=== PATIENT | female | born 1955 | race Caucasian/White ===

== ENCOUNTER 2019-06-05 10:33 | Emergency (ER) | payer BC, MEDICARE, SELFPAY ==
--- NOTE | 2019-06-05 11:03 | ED.GENADULT ---
HPI - General Adult General Chief complaint: Wound/Laceration Stated complaint: laceration on hand Time Seen by Provider: 06/05/19 11:07 Source: patient and RN notes reviewed Mode of arrival: ambulatory Limitations: no limitations History of Present Illness HPI narrative: 64-year-old female present with complaints of laceration to to palm of right hand with intermittent minimal bleeding, caused by ago a broken rita flower pot approximately 15 hours ago. Denies focal weakness, altered sensation, rash, fever or chills, or nausea or vomiting and abdominal pain. Denies pain, numbness or tingling, or loss of mobility. No foreign body sensation. Tetanus up-to-date, last 3 years ago. Some parts of this dictation were generated by voice recognition software and may contain typographical and/or grammatical inaccuracies. Related Data Home Medications Medication Instructions Recorded Confirmed vilazodone 40 mg tablet 40 mg PO DAILY 05/26/19 05/26/19 aspirin 81 mg PO DAILY 06/05/19 06/05/19 Allergies Allergy/AdvReac Type Severity Reaction Status Date / Time No Known Drug Allergies Allergy Unknown Verified 08/26/13 14:00 Review of Systems Review of Systems: Narrative: CONSTITUTIONAL: Denies fever, chills, sweats. EYES: Denies visual changes, redness, discharge. ENT: Denies rhinorrhea, congestion, sore throat, otalgia. CARDIOVASCULAR: Denies chest pain, palpitations, edema. RESPIRATORY: Denies dyspnea, wheezing, cough. GASTROINTESTINAL: Denies abdominal pain, nausea, vomiting, or diarrhea. GENITOURINARY: Denies dysuria, hematuria, abnormal discharge. SKIN: Denies rash or itching. Complains of laceration to palm of right hand with intermittent minimal bleeding. MUSCULOSKELETAL: Denies acute back pain, joint pain, or myalgia. NEUROLOGIC: Denies numbness or focal weakness. PSYCHIATRIC: Denies anxiety or depression. [facility] Past Medical History Medical History (Updated 06/05/19 @ 11:57 by MIRNA French) Anxiety Depression History of gastroesophageal reflux (GERD) Hypercholesterolemia Menopause Osteopenia Personal history of colonic polyps Polyarthritis of multiple sites Surgical History Surgical History (Updated 06/05/19 @ 11:57 by MIRNA French) History of carpal tunnel surgery Bilateral wrist History of hand surgery Right fourth (ring closed) finger fracture and repaired History of hip surgery Right History of repair of rotator cuff Right shoulder Family History Family History (Updated 06/05/19 @ 11:54 by MIRNA French) Father Acute myocardial infarction Mother Lung cancer Other Family history of cardiovascular disease Social History Social History (Updated 06/05/19 @ 11:54 by MIRNA French) Smoking status: Never smoker Second hand tobacco smoke exposure: No Alcohol intake: never Substance use: never Living arrangements: with family Occupation/Education: retired Gender identity (if verbalized by the patient): Female Additional gender identity comments: Same sex marriage Comments At time of signature, agree with nurse past medical, surgical, social, and family history. There is no relevant family history pertinent to the presenting complaint. Exam Narrative: Exam Narrative: GENERAL: This is a well-nourished, well-developed patient, in no apparent distress. HEAD: normocephalic, atraumatic. CARDIOVASCULAR: Regular rate and rhythm without murmurs, gallops, or rubs. RESPIRATORY: Clear to auscultation. Breath sounds equal bilaterally. No wheezes, rales, or rhonchi. GASTROINTESTINAL: Abdomen soft, non-tender, nondistended. Bowel sounds are active. No hepato-splenomegaly, or palpable masses. No guarding. SKIN: warm, RT hand anterior (metacarpal area (below middle finger) on palm) with a 2cm liner laceration, no evidence of foreign body, tendon injury or neurovascular injury, minimal bloody drainage noted after man
[2019-06-05 11:04] VITALS: BP 175/89; PULSE 77; RESP 20; TEMP 37.4; O2SAT 97
[2019-06-05 11:51] VITALS: BP 164/89
== END 2019-06-05 11:50 | disposition home or self-care (01) ==
PROVIDERS: Emergency Provider Nurse Practitioner Family; PCP Internal Medicine
DX: S61.411A Laceration without foreign body of right hand, initial encounter (principal); W45.8XXA Other foreign body or object entering through skin, initial encounter; F32.9 Major depressive disorder, single episode, unspecified; K21.9 Gastro-esophageal reflux disease without esophagitis; E78.00 Pure hypercholesterolemia, unspecified; M81.0 Age-related osteoporosis without current pathological fracture
CPT/HCPCS: 12001; 99212; G0463

== ENCOUNTER 2020-09-08 10:48 | Emergency (ER) | payer BC, MEDICARE, SELFPAY ==
--- NOTE | ~2020-09-08 | XR_ITS ---
XR wrist RT min 3V 09/08/2020 11:11 INDICATION: Right wrist pain and swelling PROCEDURE: 4 views right wrist COMPARISON: No prior studies for comparison. FINDINGS: Fracture, dislocation or subluxation is not identified. There are mild degenerative changes of the triscaphe joint. Osteopenia. The soft tissues appear within normal limits. No foreign bodies are identified. IMPRESSION: 1: NO ACUTE BONE OR JOINT ABNORMALITY IDENTIFIED. Reviewed, dictated and finalized at location A.
--- NOTE | 2020-09-08 10:57 | ED.EXTPRO ---
HPI - Extremity Problem General Chief complaint: Extremity Problem,Nontraumatic Stated complaint: wrist pain Time Seen by Provider: 09/08/20 10:54 Source: patient Mode of arrival: ambulatory Limitations: no limitations History of Present Illness HPI Narrative: Pleasant 65 y/o female. PMH includes: MDD, GERD, HLD, Osteoarthritis. Presents to ED today with acute complaints of RT wrist pain & swelling for the past 2 weeks. Pain is described as aching, and worse with joint movement. No falls, definitive injury, or trauma has been relayed;however, client does tell me she may have bumped it on the door frame a few days ago . No sensory deficits. No chest pain, dyspnea. Client is followed by [facility] Orthopedic MD David, also for existing end-stage OA, and S/P LT hip replacement 2019. She resumes Celebrex oral regimen daily. She reports break-through pains, despite home remedies. No additional acute complaints of illness have been relayed upon exam. Related Data Home Medications Medication Instructions Recorded Confirmed vilazodone 40 mg tablet 40 mg PO DAILY 05/26/19 09/08/20 aspirin 81 mg PO DAILY 06/05/19 09/08/20 ylwbtojm-uky-ufndw ac 400 1 tablet PO DAILY 11/24/19 09/08/20 mcg-calcium carb 500 mg-vit K1 20 mcg tablet B [id number]-Z-ebmqe-bbqb-aznvcb-Z 30 tablet PO DAILY 09/08/20 09/08/20 gabapentin 100 mg PO BID 09/08/20 09/08/20 lutein 25 mg PO DAILY 09/08/20 09/08/20 meloxicam 15 mg PO DAILY 09/08/20 09/08/20 Allergies Allergy/AdvReac Type Severity Reaction Status Date / Time No Known Drug Allergies Allergy Unknown unknown Verified 09/08/20 10:54 Review of Systems Review of Systems: Narrative: CONSTITUTIONAL: Denies fever, chills, sweats. EYES: Denies visual changes, redness, discharge. ENT: Denies rhinorrhea, congestion, sore throat, otalgia. CARDIOVASCULAR: Denies chest pain, palpitations, edema. RESPIRATORY: Denies dyspnea, wheezing, cough GASTROINTESTINAL: Denies abdominal pain, nausea, vomiting, diarrhea. GENITOURINARY: Denies dysuria, hematuria, abnormal discharge SKIN: Denies rash or itching. MUSCULOSKELETAL: RT wrist pain and swelling. Denies acute back pain. No myalgia. NEUROLOGIC: Denies numbness, or focal weakness. PSYCHIATRIC: Denies anxiety or depression. All systems reviewed & are unremarkable except as noted in HPI and below PMFSH Past Medical History Medical History Anxiety Depression History of gastroesophageal reflux (GERD) Hypercholesterolemia Menopause Normal colonoscopy 02/12/2020 Dr. Aureliano Bess Osteopenia Personal history of colonic polyps Polyarthritis of multiple sites Surgical History Surgical History History of carpal tunnel surgery Bilateral wrist History of hand surgery Right fourth (ring closed) finger fracture and repaired History of hip surgery Right History of repair of rotator cuff Right shoulder History of total left hip arthroplasty c/o Terry David on 04/19/2020 Family History Family History Father Acute myocardial infarction Mother Lung cancer Other Family history of cardiovascular disease Social History Social History Smoking status: Never smoker Second hand tobacco smoke exposure: No Alcohol intake: never Substance use: never Gender identity (if verbalized by the patient): Female Additional gender identity comments: Same sex marriage Exam Narrative: Exam Narrative: GENERAL: This is a well-nourished, well-developed patient, in no apparent distress. HEAD: normocephalic, atraumatic. EYES: PERRL. Sclera clear/white. EARS: External ears normal. NOSE: External nose normal with no obvious nasal discharge. THROAT: Mucous membranes moist. NECK: Neck supple, non-tender without lymphadeno
[2020-09-08 11:05] VITALS: BP 145/78; PULSE 85; RESP 18; TEMP 36.6; O2SAT 99
== END 2020-09-08 11:57 | disposition home or self-care (01) ==
PROVIDERS: Emergency Provider Nurse Practitioner Adult Health; PCP Internal Medicine
DX: S63.501A Unspecified sprain of right wrist, initial encounter (principal); X58.XXXA Exposure to other specified factors, initial encounter; K21.9 Gastro-esophageal reflux disease without esophagitis; E78.5 Hyperlipidemia, unspecified; M19.90 Unspecified osteoarthritis, unspecified site; Z96.642 Presence of left artificial hip joint
CPT/HCPCS: 73110; 99213; G0463

== ENCOUNTER 2021-11-07 12:34 | Emergency (ER) | payer MEDICARE, BC, SELFPAY ==
--- NOTE | 2021-11-07 12:37 | ED.WOUNDLAC ---
HPI - Wound/Laceration General Chief Complaint: Wound/Laceration Stated Complaint: right arm lac Source: patient and RN notes reviewed Mode of arrival: ambulatory Limitations: no limitations History of Present Illness HPI narrative: 66-year-old female presents to the [facility] with a skin tear to her right arm. Patient states that she bumped it on a metal piece on the door jam yesterday. Bleeding is controlled. Wound is clean. No signs of infection. Per medical record last Tdap was in 2017, 5 years ago Related Data Home Medications Medication Instructions Recorded Confirmed vilazodone 40 mg tablet (Viibryd) 40 mg PO DAILY 05/26/19 11/07/21 aspirin 81 mg PO DAILY 06/05/19 11/07/21 ibviurjl-hyq-wgjqe ac 400 1 tablet PO DAILY 11/24/19 11/07/21 mcg-calcium carb 500 mg-vit K1 20 mcg tablet (Women's 50 Plus Multivitamin) B complex-C 500 mg-folic 400 30 tablet PO DAILY 09/08/20 11/07/21 mcg-zinc 24 mg-copper 3 mg-vit E tablet gabapentin 100 mg capsule 100 mg PO BID 09/08/20 11/07/21 lutein 20 mg tablet 25 mg PO DAILY 09/08/20 11/07/21 meloxicam 15 mg tablet 15 mg PO DAILY 09/08/20 11/07/21 atomoxetine 40 mg capsule 40 mg PO DAILY 11/07/21 11/07/21 leflunomide 10 mg tablet 10 mg PO DAILY 11/07/21 11/07/21 Allergies Allergy/AdvReac Type Severity Reaction Status Date / Time No Known Drug Allergies Allergy Unknown unknown Verified 11/07/21 12:36 Review of Systems Review of Systems: All systems reviewed & are unremarkable except as noted in HPI and below Constitutional: Constitutional: Reports no additional constitutional complaints, Denies chills and Denies fever(s) Eyes: Eyes: Reports no additional eye complaints ENT: Reports system reviewed and no additional complaints, except as documented Cardiovascular: Cardiovascular: Reports no additional cardiovascular complaints Respiratory: Respiratory: Reports no additional respiratory complaints Gastrointestinal: Gastrointestinal: Reports no additional gastrointestinal complaints Musculoskeletal: Musculoskeletal: Reports no additional musculoskeletal complaints Integumentary/Breasts: Skin/Breast: Reports as per HPI (Skin tear right forearm) Neurologic: Reports system reviewed and no additional complaints, except as documented Psychiatric: Psychiatric: Reports no additional psychiatric complaints Allergic/Immunologic: Allergic/Immunologic: Reports no additional allergic/immunologic complaints [facility] Past Medical History Medical History Anxiety Depression History of gastroesophageal reflux (GERD) Hypercholesterolemia Menopause Normal colonoscopy 02/12/2020 Dr. Aureliano Bess Osteopenia Personal history of colonic polyps Polyarthritis of multiple sites Surgical History Surgical History History of carpal tunnel surgery Bilateral wrist History of hand surgery Right fourth (ring closed) finger fracture and repaired History of hip surgery Right History of repair of rotator cuff Right shoulder History of total left hip arthroplasty c/o Terry David on 04/19/2020 Family History Family History Father Acute myocardial infarction Mother Lung cancer Other Family history of cardiovascular disease Social History Social History Smoking status: Never smoker Second hand tobacco smoke exposure: No Alcohol intake: never Substance use: never Gender identity (if verbalized by the patient): Female Additional gender identity comments: Same sex marriage Comments At the time of my signature, I reviewed and agree with the nursing past medical, surgical, social, and family history. There is no relevant family history pertinent to the patient complaint. Exam Const: General: healthy appearing, no acut
[2021-11-07 12:46] VITALS: BP 136/84; PULSE 95; RESP 18; TEMP 36.4; O2SAT 99
[2021-11-07] MEDS: TETANUS,DIPHTHERIA,AC PERTUSSIS ADULT (0.5 ML) BOOSTRIX IM (13:03)
== END 2021-11-07 13:08 | disposition home or self-care (01) ==
PROVIDERS: Emergency Provider Nurse Practitioner; PCP Nurse Practitioner Family
DX: S51.811A Laceration without foreign body of right forearm, initial encounter (principal); W22.09XA Striking against other stationary object, initial encounter; Z23 Encounter for immunization; K21.9 Gastro-esophageal reflux disease without esophagitis; E78.00 Pure hypercholesterolemia, unspecified; M81.0 Age-related osteoporosis without current pathological fracture; M13.0 Polyarthritis, unspecified
CPT/HCPCS: 90471; 90715; 99212; G0463